=== PATIENT | female | born 1955 | race Caucasian/White ===

== ENCOUNTER 2018-06-03 03:42 | Observation (INO) | payer OTHER ==
[2018-06-03] MEDS ORDERED: NS 1,000 ML IV ONE ×2 (03:57)
--- NOTE | 2018-06-03 03:57 | EDPHY ---
H & P Stated Complaint: burning abd pain with diarrhea Time Seen by Provider: 06/03/18 03:57 HPI/ROS: HPI CHIEF COMPLAINT: Abdominal pain diarrhea, syncope HISTORY OF PRESENT ILLNESS: Patient is a 63-year-old female she is visiting from [place], she arrived in [place] yesterday she statement 1 day and [place] and then went up to [place]. Where she had increasing abdominal upset with associated nausea but no vomiting as well as 2 episodes of watery diarrhea nonbloody. Also complains of abdominal discomfort. She describes a burning sensation in her mid abdomen. Denies any significant chest pain. She was having diarrhea tonight on the toilet and had a syncopal episode. Very brief. No chest pain. [place] nauseous and lightheaded. Past Medical History: C diff Past Surgical History: Appendectomy, , hernia repair Social History: Denies drugs alcohol tobacco. Resides in [place]. Family History: Noncontributory ROS REVIEW OF SYSTEMS: 10 Systems were reviewed and negative with the exception of the elements mentioned in the history of present illness. Exam Constitutional triage nursing summary reviewed, vital signs reviewed, awake/ alert. Eyes normal conjunctivae and sclera, EOMI, PERRLA. HENT normal inspection, atraumatic, moist mucus membranes, no epistaxis, neck supple/ no meningismus, no raccoon eyes. Respiratory clear to auscultation bilaterally, normal breath sounds, no respiratory distress, no wheezing. Cardiovascular rate normal, regular rhythm, no murmur, no edema, distal pulses normal. Gastrointestinal soft, non-tender, no rebound, no guarding, normal bowel sounds, no distension, no pulsatile mass. Genitourinary no CVA tenderness. Musculoskeletal no midline vertebral tenderness, full range of motion, no calf swelling, no tenderness of extremities, no meningismus, good pulses, neurovascularly intact. Skin pink, warm, & dry, no rash, skin atraumatic. Neurologic awake, alert and oriented x 3, AAOx3, moves all 4 extremities equally, motor intact, sensory intact, CN II-XII intact, normal cerebellar, normal vision, normal speech. Psychiatric normal mood/affect. Heme/Lymph/Immune no lymphadenopathy. Differential Diagnosis: Differential diagnosis includes but is not limited to and in no particular order: Dehydration, electrolyte disturbance Bowel obstruction, appendicitis, gallbladder disease, diverticulitis, colitis, enteritis, perforated viscus, gastritis, GERD, esophagitis, urinary tract infection, pyelonephritis, kidney stones Medical Decision Making: Plan for this patient IV establishment IV fluid bolus , 2 L normal saline, IV Zofran for nausea, basic labs, lactic acid, troponin, EKG, CT scan abdomen pelvis with IV contrast, UA. Reason for CT scan abdominal pain. Re-evaluation: EKG interpretation by me on record in [facility] system. Impression time of EKG 4:15 a.m., sinus rhythm rate of 72 right bundle-branch block present. Abnormal T-wave inversion V1 V2. No ST elevation. CT scan abdomen pelvis with IV contrast for abdominal pain diarrhea nausea Faxed to me by direct Radiology at 4:57 a.m. 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 CT scan shows possible mesenteric adenitis or enteritis. This may be the cause of her abdominal discomfort, diarrhea ongoing nausea. Trop negative. Labs reviewed. Plan for admission today for observation for ongoing nausea abdominal pain and diarrhea. Patient agrees for admission. Spoke with Dr. Child agrees to admit. Source: Patient - Personal History Current Tetanus/Diphtheria Vaccine: No Current Tetanus Diphtheria and Acellular Pertussis (TDAP): No - Medical/Surgical History Hx Asthma: No Hx Chronic Respiratory Disease: No Hx Diabetes: No Hx Cardiac Disease: No Hx Renal Disease: No Hx Cirrhosis: No Hx Alcoholism: No Hx HIV/AIDS: No Hx Splenectomy or Spleen Trauma: No Other PMH: appy, , neck surgery - Social History Smoking Status: Never smoked Constitutional: Initial Vital Signs Temperature (C) 36.5 C 06/03/18 03:44 Heart Rate 76 06/03/18 03:44 Respiratory Rate 16 06/03/18 03:44 Blood Pressure 127/81 H 06/03/18 03:44 O2 Sat (%) 99 06/03/18 03:44 O2 Delivery Mode Room Air Allergies/Adverse Reactions: ampicillin Allergy (Verified 06/03/18 07:34) Other-Enter Comments Home Medications: Medication Instructions Recorded Acetaminophen [Tylenol 325mg (*)] 650 mg PO Q4HRS PRN tab 06/03/18 Medical Decision Making - Data Points Laboratory Results: Laboratory Results 06/03/18 04:02 06/03/18 04:02 Medications Given: Discontinued Medications Al Hydroxide/Mg Hydroxide (Maalox Susp) 30 ml PO ONCE ONE Stop: 06/03/18 04:56 Last Admin: 06/03/18 05:44 Dose: 30 ml Famotidine (Pepcid) 20 mg IVP EDNOW ONE Stop: 06/03/18 04:10 Last Admin: 06/03/18 04:19 Dose: 20 mg Hydromorphone HCl (Dilaudid) 0.5 mg IVP EDNOW ONE Stop: 06/03/18 06:03 Last Admin: 06/03/18 06:34 Dose: 0.5 mg Hyoscyamine Sulfate (Levsin, Hyomax-Sl) 0.25 mg PO ONCE ONE Stop: 06/03/18 04:56 Last Admin: 06/03/18 05:44 Dose: 0.25 mg Sodium Chloride (Ns) 1,000 mls @ 0 mls/hr IV EDNOW ONE; Wide Open PRN Reason: Protocol Stop: 06/03/18 03:58 Last Admin: 06/03/18 04:17 Dose: 1,000 mls Sodium Chloride (Ns) 1,000 mls @ 0 mls/hr IV ONCE ONE PRN Reason: Wide Open Stop: 06/03/18 03:58 Last Admin: 06/03/18 04:18 Dose: 1,000 mls Sodium Chloride (Ns) 1,000 mls @ 125 mls/hr IV CONT LEAH Stop: 11/30/18 06:44 Last Admin: 06/03/18 09:43 Dose: 1,000 mls Lidocaine (Lidocaine 2% Viscous) 15 ml PO ONCE ONE Stop: 06/03/18 04:56 Last Admin: 06/03/18 05:45 Dose: 15 ml Lorazepam (Ativan Injection) 0.5 mg IVP EDNOW ONE Stop: 06/03/18 07:17 Last Admin: 06/03/18 07:22 Dose: 0.5 mg Ondansetron HCl (Zofran) 4 mg IVP EDNOW ONE Stop: 06/03/18 04:08 Last Admin: 06/03/18 04:19 Dose: 4 mg Ondansetron HCl (Zofran) 4 mg IVP EDNOW ONE Stop: 06/03/18 06:03 Last Admin: 06/03/18 06:34 Dose: 4 mg Point of Care Test Results: Chemistry 06/03/18 04:09 POC Troponin I 0.00 ng/mL ng/mL (0.00-0.08) Departure - Departure Disposition: [facility] Inpatient Acute Clinical Impression: Abdominal pain Qualifiers: Abdominal location: generalized Qualified Code(s): R10.84 - Generalized abdominal pain Diarrhea Qualifiers: Diarrhea type: unspecified type Qualified Code(s): R19.7 - Diarrhea, unspecified Vomiting Qualifiers: Vomiting type: unspecified Vomiting Intractability: intractable Nausea presence : with nausea Qualified Code(s): R11.2 - Nausea with vomiting, unspecified Condition: Fair
[2018-06-03] MEDS ORDERED: ONDANSETRON 4 MG/2 ML VIAL IVP ONE ×2 (04:07→06:02)
[2018-06-03] MEDS ORDERED: FAMOTIDINE 20 MG/2 ML SDV IVP ONE (04:09)
[2018-06-03 04:31] LABS: PLATELET COUNT 204 10^3/uL (150-400)
[2018-06-03 04:44] LABS: INR 1.01 (0.83-1.16); PROTIME(PATIENT) 12.9 SEC (12.0-15.0)
[2018-06-03] MEDS ORDERED: HYOSCYAMINE SULFATE 0.125 MG TAB PO ONE (04:55)
[2018-06-03] MEDS ORDERED: MAG HYDROX/AL HYDROX/SIMETH 30 ML UDCUP PO ONE (04:55)
[2018-06-03] MEDS ORDERED: LIDOCAINE 2% VISCOUS 15 ML UDCUP PO ONE (04:55)
[2018-06-03] MEDS ORDERED: HYDROmorphONE/DILAUDID 2 MG/ML INJ IVP ONE (06:02)
[2018-06-03] MEDS ORDERED: ACETAMINOPHEN 325 MG TAB PO PRN (06:37)
[2018-06-03] MEDS ORDERED: PROMETHAZINE HCL 25 MG/ML INJ IVP PRN (06:37)
[2018-06-03] MEDS ORDERED: LORazepam 2 MG/ML INJ IVP PRN (06:37)
[2018-06-03] MEDS ORDERED: ONDANSETRON 4 MG/2 ML VIAL IVP PRN (06:37)
[2018-06-03] MEDS ORDERED: ONDANSETRON DISINTEGRATING 4 MG TAB PO PRN (06:37)
[2018-06-03] MEDS ORDERED: NS 1,000 ML IV SCH (06:45)
[2018-06-03] MEDS ORDERED: LORazepam 2 MG/ML INJ IVP ONE (07:16)
--- NOTE | 2018-06-03 08:04 | CPEKG ---
Test Reason : OPEN Blood Pressure : / mmHG Vent. Rate : 072 BPM Atrial Rate : 072 BPM P-R Int : 155 ms QRS Dur : 131 ms QT Int : 432 ms P-R-T Axes : 077 088 037 degrees QTc Int : 473 ms Sinus rhythm Right bundle branch block Confirmed by Darrel Suarez ([id number]) on 06/03/2018 8:03:53 AM Referred By: Darrel Suarez Confirmed By:Darrel Suarez
--- NOTE | 2018-06-03 08:59 | PDGENHP ---
History and Physical - Chief Complaint Nausea and abdominal pain - History of Present Illness Source-patient provides history appears reliable. EMR was reviewed and case discussed with ED provider. HPI-this is a pleasant 63-year-old female with past medical history significant for IBS, C diff in 2017 who presents emergency department today with complaints of increasing abdominal pain and nausea. Patient arrived to the [place] from [place] yesterday. She is here visiting her daughter who resides in [place]. This evening patient developed increasing nausea with upper abdominal pain distension and some loose stools. She has not able to the tolerate much oral intake due to decreased appetite and significant nausea. Patient did try to take some Tums and Pepcid. It increasing burning sensation in her abdomen and distension. She also noted some loose stools but no diarrhea. She denies any fevers or chills. Yesterday evening patient did have a syncopal episode that was witnessed by her daughter that lasted approximately 2 min. She had been increasingly lightheaded with positional changes. Patient denies any chest pain or palpitations. No shortness of breath or calf pain/swelling. No known sick contacts however patient was in flight for travel. She is not sure she was maybe feeling a little under the weather even before she arrived to the airport. History Information - Allergies/Home Medication List Allergies/Adverse Reactions: ampicillin Allergy (Verified 06/03/18 07:34) Other-Enter Comments Home Medications: NK [No Known Home Meds] 06/03/18 [Last Taken Unknown] I have personally reviewed and updated: family history, medical history, social history, surgical history - Past Medical History Additional medical history: IBS. C diff in 2017 - Surgical History Additional surgical history: Appendectomy, , hernia repair - Family History Additional family history: Father-CAD. - Social History Smoking Status: Never smoked Alcohol Use: None Drug Use: None Additional social history: Patient is and lives in [place]. Visiting daughter here in [place]. Cor status-full. Review of Systems Review of Systems: ROS: 10pt was reviewed & negative except for what was stated in HPI & below Constitutional: Reports: malaise. Denies: chills, fever EENMT: Reports: no symptoms. Denies: nose congestion, sore throat Cardiac: Reports: no symptoms Respiratory: Reports: no symptoms Gastrointestinal: Reports: abdominal pain (See HPI), abdominal distention, diarrhea (Loose stool), nausea. Denies: vomitting Genitourinary: Reports: no symptoms Physical Exam Physical Exam: Selected Entries 06/03/18 03:44 Blood Pressure Automatic Method Heart Rate 76 Respiratory 16 Rate O2 Sat (%) 99 Temperature (C) 36.5 C Blood Pressure 127/81 H Mean Arterial 96 Pressure (MAP) O2 Delivery Room Air Mode Temperature Oral Source Temp Pulse Resp BP Pulse Ox 36.4 C 55 L 16 110/60 97 06/03/18 08:06 06/03/18 08:06 06/03/18 08:06 06/03/18 08:06 06/03/18 08:06 O2 (L/minute) 1.5 Constitutional: no apparent distress, uncomfortable, other (NAD. Patient is lying quietly in the bed. She does appear uncomfortable when She has to sit up and lower abdomen. Patient does appear fatigued and acutely ill but nontoxic.) Eyes: PERRL (Decreased reactivity light bilaterally but symmetric.), anicteric sclera, EOMI, No scleral injection Ears, Nose, Mouth, Throat: dry mucous membranes, other (No nasal discharge.), No poor dentition Cardiovascular: regular rate and rhythym, no murmur, rub, or gallop, pulses symmetric bilaterally, No edema Peripheral Pulses: 2+: dorsalis-pedis (R), dorsalis-pedis (L) Respiratory: no respiratory distress, no rales or rhonchi, clear to auscultation , No inspiratory crackles Gastrointestinal: normoactive bowel sounds, soft, non-tender abdomen, distension , No guarding, No rebound Genitourinary: no bladder tenderness, No dickinson in urethra Skin: warm, normal color, no rashes or abrasions Musculoskeletal: full muscle strength, other (Patient sits up independently moves all extremities.), No generalized weakness Neurologic: AAOx3, sensation intact bilaterally, other (Grossly nonfocal exam.) , No facial droop Psychiatric: interacting appropriately, not anxious, not encephalopathic, thought process linear Lab Data & Imaging Review 06/03/18 04:02 06/03/18 04:02 WBC 7.77 10^3/uL (3.80-9.50) 06/03/18 04:02 RBC 5.02 10^6/uL (4.18-5.33) 06/03/18 04:02 Hgb 15.0 g/dL (12.6-16.3) 06/03/18 04:02 Hct 44.1 % (38.0-47.0) 06/03/18 04:02 MCV 87.8 fL (81.5-99.8) 06/03/18 04:02 MCH 29.9 pg (27.9-34.1) 06/03/18 04:02 MCHC 34.0 g/dL (32.4-36.7) 06/03/18 04:02 RDW 12.2 % (11.5-15.2) 06/03/18 04:02 Plt Count 204 10^3/uL (150-400) 06/03/18 04:02 MPV 10.7 fL (8.7-11.7) 06/03/18 04:02 Neut % (Auto) 84.3 % (39.3-74.2) H 06/03/18 04:02 Lymph % (Auto) 9.8 % (15.0-45.0) L 06/03/18 04:02 [place] % (Auto) 5.5 % (4.5-13.0) 06/03/18 04:02 Eos % (Auto) 0.0 % (0.6-7.6) L 06/03/18 04:02 Baso % (Auto) 0.1 % (0.3-1.7) L 06/03/18 04:02 Nucleat RBC Rel Count 0.0 % (0.0-0.2) 06/03/18 04:02 Absolute Neuts (auto) 6.55 10^3/uL (1.70-6.50) H 06/03/18 04:02 Absolute Lymphs (auto) 0.76 10^3/uL (1.00-3.00) L 06/03/18 04:02 Absolute Monos (auto) 0.43 10^3/uL (0.30-0.80) 06/03/18 04:02 Absolute Eos (auto) 0.00 10^3/uL (0.03-0.40) L 06/03/18 04:02 Absolute Basos (auto) 0.01 10^3/uL (0.02-0.10) L 06/03/18 04:02 Absolute Nucleated RBC 0.00 10^3/uL (0-0.01) 06/03/18 04:02 Immature Gran % 0.3 % (0.0-1.1) 06/03/18 04:02 Immature Gran # 0.02 10^3/uL (0.00-0.10) 06/03/18 04:02 PT 12.9 SEC (12.0-15.0) 06/03/18 04:02 INR 1.01 (0.83-1.16) 06/03/18 04:02 APTT 25.6 SEC (23.0-38.0) 06/03/18 04:02 VBG Lactic Acid 1.5 mmol/L (0.7-2.1) 06/03/18 04:02 Sodium 139 mEq/L (135-145) 06/03/18 04:02 Potassium 3.8 mEq/L (3.5-5.2) 06/03/18 04:02 Chloride 103 mEq/L (97-110) 06/03/18 04:02 Carbon Dioxide 24 mEq/l (22-31) 06/03/18 04:02 Anion Gap 12 mEq/L (6-14) 06/03/18 04:02 BUN 18 mg/dL (7-23) 06/03/18 04:02 Creatinine 0.9 mg/dL (0.6-1.0) 06/03/18 04:02 Estimated GFR > 60 06/03/18 04:02 Glucose 114 mg/dL (70-100) H 06/03/18 04:02 Calcium 9.8 mg/dL (8.5-10.4) 06/03/18 04:02 Total Bilirubin 1.2 mg/dL (0.1-1.4) 06/03/18 04:02 Conjugated Bilirubin 0.3 mg/dL (0.0-0.5) 06/03/18 04:02 Unconjugated Bilirubin 0.9 mg/dL (0.0-1.1) 06/03/18 04:02 AST 28 IU/L (14-46) 06/03/18 04:02 ALT 31 IU/L (9-52) 06/03/18 04:02 Alkaline Phosphatase 57 IU/L (38-126) 06/03/18 04:02 POC Troponin I 0.00 ng/mL (0.00-0.08) 06/03/18 04:09 Total Protein 7.5 g/dL (6.3-8.2) 06/03/18 04:02 Albumin 4.7 g/dL (3.5-5.0) 06/03/18 04:02 Lipase 49 IU/L (23-300) 06/03/18 04:02 Urine Color COLORLESS 06/03/18 06:30 Urine Appearance CLEAR 06/03/18 06:30 Urine pH 7.0 (5.0-7.5) 06/03/18 06:30 Ur Specific [place] 1.008 (1.002-1.030) 06/03/18 06:30 Urine Protein NEGATIVE (NEGATIVE) 06/03/18 06:30 Urine Ketones NEGATIVE (NEGATIVE) 06/03/18 06:30 Urine Blood NEGATIVE (NEGATIVE) 06/03/18 06:30 Urine Nitrate NEGATIVE (NEGATIVE) 06/03/18 06:30 Urine Bilirubin NEGATIVE (NEGATIVE) 06/03/18 06:30 Urine Urobilinogen NEGATIVE EU (0.2-1.0) 06/03/18 06:30 Ur Leukocyte Esterase NEGATIVE (NEGATIVE) 06/03/18 06:30 Urine Glucose NEGATIVE (NEGATIVE) 06/03/18 06:30 Imaging Review: Preliminary report showing mesenteric lymphadenopathy possibly due to mesenteric adenitis versus enteritis. Incidental findings of bilateral pelvic vascular congestion.. Left kidney stone and mild bilateral hydro without obstructing lesion Visualized and Interpreted EKG results: Yes EKG Interpretation: Positive for: normal sinsus rhythm, right bundle branch block EKG additional interpertation: NSR in 70s. Right bundle branch block. No acute ST changes. QTC is 473. Assessment & Plan Assessment: this is a pleasant 63-year-old female with past medical history significant for IBS, C diff in 2017 who presents emergency department today with complaints of increasing abdominal pain and nausea. Abdominal pain (Acute) - patient is complaining of upper abdominal discomfort and distention. Symptoms consistent with a likely viral gastroenteritis. Patient received Dilaudid in the emergency department as well as a GI cocktail she reported worsened her symptoms. Lorazepam ordered for additional cramping pain. Acute gastroenteritis - plan as above. No dietary restrictions. Will start patient on clear liquids and advance as tolerated. Intractable nausea without vomiting - Zofran, Phenergan, Ativan p.r.n. Loose stools - patient denies any watery diarrhea at time of my interview. No melena hematochezia. She does have a history of C diff but has not recently been on any antibiotic therapy. Stool studies have been ordered. Incidental findings - no acute intra-abdominal abnormalities. Hemangioma. left kidney stone non obstructing and bilateral pelvic vessel congestion. - UA was negative and patient was without any CVA tenderness or other urinary symptoms. Findings were not available at time of my interview with the patient. I requested a day provider review incidental findings with the patient later today. FEN - IV fluid. Electrolyte monitoring replacement if needed. Advancing diet as tolerated. PPX-SCDs. Consider anticoagulation if patient should stay additional day otherwise will encourage mobilization. Disposition-patient admitted to observation status on the [facility] floor for continued supportive therapy. Cor status-full
--- NOTE | 2018-06-03 12:35 | HOSPPROG ---
Hospitalist Progress Note Assessment/Plan: Maria Del Carmen is a 63-year-old female with past medical history significant for IBS , C diff in 2017 who presents emergency department today with complaints of increasing abdominal pain and nausea. First encounter, chart reviewed. Abdominal pain (Acute) - -resolved her CT scan show nothing acute, Likely hepatic hemangiomas measuring up to 3.3 cm. Engorged periuterine vessels, as can be seen with pelvic congestion syndrome. Mild bilateral pelvocaliectasis and a nonobstructing calculus of the left kidney Acute gastroenteritis - tolerating clear liquids without difficulty Intractable nausea without vomiting resolved Loose stools -none further syncopal episode -suspect she had a vasovagal event. Plan: dc home 1 Subjective: Maria Del Carmen is feeling much better today. Objective: Vital Signs Temp Pulse Resp BP Pulse Ox 36.8 C 59 L 16 122/69 H 98 06/03/18 11:18 06/03/18 11:18 06/03/18 11:18 06/03/18 11:18 06/03/18 11:18 06/02/18 06/03/18 06/04/18 05:59 05:59 05:59 Intake Total 2200 Balance 2200 PT 12.9 SEC (12.0-15.0) 06/03/18 04:02 INR 1.01 (0.83-1.16) 06/03/18 04:02 - Physical Exam Constitutional: no apparent distress Eyes: PERRL Ears, Nose, Mouth, Throat: hearing normal Cardiovascular: regular rate and rhythym Respiratory: no respiratory distress Gastrointestinal: normoactive bowel sounds, soft, non-tender abdomen Skin: warm Neurologic: AAOx3 Psychiatric: interacting appropriately ICD10 Worksheet Patient Problems: Problems Problem Status Onset Abdominal pain Acute Diarrhea Acute Vomiting Acute
[2018-06-03] MEDS ORDERED: METHOCARBAMOL 750 MG TAB PO PRN (13:05)
--- NOTE | 2018-06-03 13:29 | ASMTCMCOM ---
CM Note CM Note Notes: Pt is a 63 yo F who is visiting from [facility] to see her daughter in [place]. Pt presents with abdominal pain, diaherrea, and nausea. Discharge needs TBD at this time, CM to follow. Plan: TBD Date Signed: 06/03/2018 01:28 PM Electronically Signed By:AMELIA Bobby
--- NOTE | 2018-06-03 15:51 | PDDCSUM ---
Discharge Summary Discharge Summary: Discharge diagnoses: 1. Abdominal pain 2. viral gastroenteritis 3. syncopal event 4. Nausea 5. Loose stools Briefly: Maria Del Carmen is a 63-year-old female with past medical history significant for IBS , C diff in 2017 who presents emergency department today with complaints of increasing abdominal pain and nausea. Her CT scan show nothing acute, Likely hepatic hemangiomas measuring up to 3.3 cm. Engorged periuterine vessels, as can be seen with pelvic congestion syndrome. Mild bilateral pelvocaliectasis and a nonobstructing calculus of the left kidney. I reviewed these findings with her. This afternoon, she is feeling markedly better, no further abdominal pain, nausea Condition at discharge is stable. Vital signs. Blood pressure is 122/69, heart rate is 59, respiratory rate is 16 , oxygen levels on room air 95%, temperature is 36.1 degrees C Discharge instructions 1. Stay well hydrated 2. Get a warm water bottle to help relax her abdomen. 3. If she develops any fever chills chest pain shortness of breath or worsening abdominal pain to return to the ER
--- NOTE | 2018-06-03 15:59 | ASMTDCNOTE ---
Case Management Discharge Discharge Order Complete? Answers: Yes Patient to Obtain Answers: via Family Medications Transportation Arranged Answers: Family/Friends Discharge Comments Notes: Pt is being discharged independently. No Therapies ordered. No CM needs identified. Family to transport/ assist pt at discharge. Date Signed: 06/03/2018 03:59 PM Electronically Signed By:AMELIA Bobby
--- NOTE | 2018-06-03 16:02 | ASDISCHSUM ---
Discharge Information Plan Status:Home with No Needs Medically Cleared to Leave:06/03/2018 Discharge Date:06/03/2018 CM D/C Disposition: ADT D/C Disposition:Home, Routine, Self-Care Projected Discharge Date:06/03/2018 Transportation at D/C:Family Discharge Delay Reason: Follow-Up Date:06/03/2018 Discharge Slot: Final Diagnosis: Placement Information Patient Contact Information Contact Name:BALDEV Relationship: Address:[address] [place] [address] Work Phone: City:[place] Alternate Phone: State/Zip Code:[place] [address] Email: Financial Information Financial Class:HMO and PPO Plans Primary Plan Desc:JUAN JOSE Primary Plan Number:[id number] Secondary Plan Desc: Secondary Plan Number: Assessment Information LACE LACE Length of stay for Answers: Less than 1 day current admission Acuity / Level of Answers: No Care: Did the patient have an inpatient admission? Comorbidities - select Answers: Other Notes: IBS/Cdiff all that apply # of Emergency department Answers: 1-2 visits in the last 6 months Score: 2 Date Signed: 06/03/2018 03:59 PM Electronically Signed By:AMELIA Bobby [facility] Progress Note CM Note CM Note Notes: Pt is a 63 yo F who is visiting from [facility] to see her daughter in [place]. Pt presents with abdominal pain, diaherrea, and nausea. Discharge needs TBD at this time, CM to follow. Plan: TBD Date Signed: 06/03/2018 01:28 PM Electronically Signed By:AMELIA Bobby Case Management Discharge Plan Note Case Management Discharge Discharge Order Complete? Answers: Yes Patient to Obtain Answers: via Family Medications Transportation Arranged Answers: Family/Friends Discharge Comments Notes: Pt is being discharged independently. No Therapies ordered. No CM needs identified. Family to transport/ assist pt at discharge. Date Signed: 06/03/2018 03:59 PM Electronically Signed By:AMELIA Bobby Intervention Information
[2018-06-03 17:13] VITALS: BP 135/63
== END 2018-06-03 17:45 | disposition home or self-care (01) ==
LOC: F1N 08:02
PROVIDERS: ADMIT Family Medicine; ATTEND Internal Medicine
DX: K52.9 Noninfective gastroenteritis and colitis, unspecified (principal); R55 Syncope and collapse; R11.0 Nausea; N20.0 Calculus of kidney; E86.0 Dehydration
CPT/HCPCS: 74177; 93005; G0378; 84484-ER; 96374; J1170; J2060; J2405